=== PATIENT | male | born 1960 | race Caucasian/White ===

== ENCOUNTER → 2023-12-28 07:41 | Outpatient (CLI) | payer OTHER, SELFPAY ==
--- NOTE | 2023-12-28 07:44 | DI.ECHO.S_ITS ---
[place] [facility] : : [id number] : : [address] : : [id number] : : Phone: [phone] Echocardiogram Report + + :Name: KHUSHBU ARRINGTON Study Date: 12/28/2023 Height: 73 in : :[facility] ReadingLocation: Weight: 200 lb : : Gender: Male BSA: 2.2 m2 : :: 1960 Age: 63 yrs BP: 151/80 mmHg: :Reason For Study: MURMUR : :Ordering Physician: KAIA MELGOZA : :E Performed By: Malissa Card : :Referring: KAIA MELGOZA E : + + Interpretation Summary The left ventricle is normal in size and wall thickness. The left ventricular ejection fraction is normal. The ejection fraction is estimated to be 60-65%. The right ventricle is normal in size and function. The peak aortic velocity is 2.7 m/sec. The aortic valve mean gradient is 15 mmHg. The calculated aortic valve area is 1.1 cm2. sev ratio: 0.34 There is mild to moderate aortic stenosis. Procedure: A two-dimensional transthoracic echocardiogram with color flow and Doppler was performed. The study quality was technically adequate. There is no prior echocardiogram noted for this patient. The patient was in sinus rhythm with heart rates between 66-72 bpm during the exam. Left Ventricle: The left ventricle is normal in size and wall thickness. There is no thrombus. The ejection fraction is estimated to be 60-65%. The left ventricular ejection fraction is normal. There are no focal wall motion abnormalities. MV E/A: 1.2 Med Peak E' Stefano: 8.2 cm/sec E/E' med: 8.7. Right Ventricle: The right ventricle is normal in size and function. Atria: The left atrial size is normal. Right atrial size is normal. There is no Doppler evidence for an interatrial shunt. Mitral Valve: There is mild mitral annular calcification. There is mild mitral regurgitation. Aortic Valve: The aortic valve is moderately calcified. The aortic valve is trileaflet. The peak aortic velocity is 2.7 m/sec. The aortic valve mean gradient is 15 mmHg. The calculated aortic valve area is 1.1 cm2. There is mild to moderate aortic stenosis. No aortic regurgitation is present. Tricuspid Valve: The tricuspid valve is normal. There is mild tricuspid regurgitation. The right ventricular systolic pressure is estimated to be at least 21 mmHg based on an estimated right atrial pressure of 3 mm Hg. Pulmonic Valve: The pulmonic valve leaflets are thin and pliable; valve motion is normal. There is trace pulmonic regurgitation. Great Vessels: The aortic root is normal size. The dimensions of the ascending aorta are normal. The IVC is of normal diameter and collapses greater than 50% with a sniff. This suggests a low right atrial pressure of 3 mm Hg. Pericardium/ Pleura There is no pericardial effusion. There is no pleural effusion. MMode/2D Measurements & Calculations LVIDd: 5.3 cm LVOT diam: 2.0 cm LVIDs: 3.3 cm Ao root diam: 3.2 cm FS: 37.6 % asc Aorta Diam: 3.1 cm EPSS: 0.43 cm Ao Arch Diam (Prox Trans): 3.1 cm IVSd: 0.75 cm LVPWd: 0.74 cm LV pat. diameter/BSA (cm/m^2): 2.5 LV sys. diameter/BSA (cm/m^2): 1.5 LA A2 area: 19.3 cm2 RA long axis: 5.3 cm LA A4 area: 19.1 cm2 RA area: 19.0 cm2 LA length (vol): 5.4 cm RA vol: 57.7 ml LA vol: 58.2 ml RA : 26.8 ml/m2 LA vol index: 27.1 ml/m2 IVC diam: 1.5 cm RVD1 (basal): 4.0 cm RVD2 (mid): 2.9 cm TAPSE: 1.9 cm Doppler Measurements & Calculations Ao V2 max: 262.9 cm/sec LVOT Max Stefano: 86.3 cm/sec Ao V2 mean: 172.0 cm/sec LV V1 max P.0 mmHg Ao max P.3 mmHg LV V1 VTI: 18.7 cm Ao mean P.9 mmHg MIRTHA(I,D): 1.1 cm2 Ao V2 VTI: 54.3 cm MIRTHA(V,D): 1.0 cm2 sev ratio: 0.34 MIRTHA indexed to BSA (cm^2/m^2): 0.51 MV E max stefano: 70.7 cm/sec TR max stefano: 214.9 cm/sec MV A max stefano: 61.3 cm/sec TR max P.5 mmHg MV E/A: 1.2 PA V2 max: 115.4 cm/sec Med Peak E' Stefano: 8.2 cm/sec PA V2 mean: 76.7 cm/sec E/E' med: 8.7 PA mean P.7 mmHg Lat Peak E' Stefano: 9.6 cm/sec PA pr(Accel): 34.5 mmHg E/E' lat: 7.4 E/e' average: 8.0 MV dec time: 0.20 sec SV(LVOT): 59.1 ml Reading Physician:04:08 PM
== END ==
LOC: ECHO 07:43
PROVIDERS: Referring Provider Family Medicine; Visit Provider Family Medicine
DX: I08.3 Combined rheumatic disorders of mitral, aortic and tricuspid valves (principal); R01.1 Cardiac murmur, unspecified
CPT/HCPCS: 93306